=== PATIENT | female | born 1975 | race Caucasian/White ===

== ENCOUNTER 2018-01-25 11:08 | Emergency (ER) | payer OTHER ==
[2018-01-25 12:26] VITALS: BP 131/93
--- NOTE | 2018-01-25 12:42 | ED ---
Lower Extremity - HPI Summary HPI Summary: 42F presents with left leg pain for the past two days. has history of chronic back and sciatica pain and states that is feels different. is sharp pain from left hip to left posterior foot. pain does down the back aspect of leg. has calf pain. history of blood clots. no chest pain or SOB. no injury. no loss of bowel or bladder. no fever. no saddle anaesthesia. currently on flexeril did not help. worst when sits still. able to ambulate. no weakness. - History of Current Complaint Chief Complaint: UCLowerExtremity Stated Complaint: L LEG PAIN Time Seen by Provider: 01/25/18 12:27 Hx Last Menstrual Period: 01/19/18 Pain Intensity: 8 - Allergies/Home Medications Allergies/Adverse Reactions: Allergies Allergy/AdvReac Type Severity Reaction Status Date / Time acetaminophen [From Ultracet] Allergy Hives/Diff. Verified 01/25/18 12:22 Breathing/I tching aspirin Allergy Hives/Diff. Verified 01/25/18 12:22 Breathing/I tching azithromycin Allergy Hives/Diff. Verified 01/25/18 12:22 Breathing/I tching bupropion [From Wellbutrin] Allergy Anaphylatic Verified 01/25/18 12:22 Shock clindamycin Allergy Hives/Diff. Verified 01/25/18 12:22 Breathing/I tching codeine Allergy Hives/Diff. Verified 01/25/18 12:22 Breathing/I tching gabapentin Allergy Hives/Diff. Verified 01/25/18 12:22 Breathing/I tching hydrocodone [From Vicodin] Allergy Hives/Diff. Verified 01/25/18 12:22 Breathing/I tching ketorolac [From Toradol] Allergy Hives/Diff. Verified 01/25/18 12:22 Breathing/I tching NSAIDS (Non-Steroidal Allergy Hives/Diff. Verified 01/25/18 12:22 Anti-Inflamma Breathing/I tching tramadol Allergy Hives/Diff. Verified 01/25/18 12:22 Breathing/I tching Home Medications: Home Medications Cyclobenzaprine TAB* [Flexeril 10 MG TAB*] 10 mg PO Q12HR PRN 01/25/18 [History Confirmed 01/25/18] Escitalopram Oxalate [Lexapro 20 mg] 20 mg PO DAILY 01/25/18 [History Confirmed 01/25/18] Oxycodone HCl 5 mg PO DAILY 01/25/18 [History Confirmed 01/25/18] Zolpidem Tartrate [Ambien] 5 mg PO DAILY PRN 01/25/18 [History Confirmed ] busPIRone TAB* [Buspar TAB*] 5 mg PO BID 01/25/18 [History Confirmed 01/25/18] PMH/Surg Hx/FS Hx/Imm Hx Endocrine/Hematology History: Denies: Hx Anticoagulant Therapy, Hx Diabetes Psychiatric History: Reports: Hx Anxiety, Hx Depression - Surgical History Surgery Procedure, Year, and Place: OVARIAN CYSCTECTOMY AND FALLOPIAN TUBE REMOVAL. [facility] Infectious Disease History: No Infectious Disease History: Denies: Traveled Outside the [place] in Last 30 Days - Family History Known Family History: Negative: Blood Disorder - Social History Alcohol Use: Occasionally Substance Use Type: Reports: None Smoking Status (MU): Heavy Every Day Tobacco Smoker Amount Used/How Often: 1/2 PPD Review of Systems Negative: Fever Negative: Chest Pain Negative: Shortness Of Breath Positive: Myalgia - left leg pain All Other Systems Reviewed And Are Negative: Yes Physical Exam Triage Information Reviewed: Yes Vital Signs On Initial Exam: Initial Vitals Temp Pulse Resp BP Pulse Ox 99.8 F 91 19 131/93 99 01/25/18 12:14 01/25/18 12:14 01/25/18 12:14 01/25/18 12:14 01/25/18 12:14 Vital Signs Reviewed: Yes Appearance: Positive: Well-Appearing Skin: Positive: Warm, Dry Head/Face: Positive: Normal Head/Face Inspection Eyes: Positive: Normal, Conjunctiva Clear ENT: Positive: Pharynx normal Respiratory/Lung Sounds: Positive: Clear to Auscultation, Breath Sounds Present Cardiovascular: Positive: Normal, RRR Musculoskeletal: Positive: Limited @ - left leg due to pain, Other - good pulses , capillary refill<2 secs, sensation grossly intact, no midline tenderness back , no SI joint tenderness. Negative: Max Sign Left, Edema Left Neurological: Positive: Reflexes Intact - patella, Normal Gait Diagnostics - Vital Signs Vital Signs Temp Pulse Resp BP Pulse Ox 01/25/18 12:14 99.8 F 91 19 131/93 99 - Laboratory Lab Statement: Any lab studies that have been ordered have been reviewed, and results considered in the medical decision making process. Lower Extremity Course/Dx - Course Course Of Treatment: 42F presents with left leg pain for the past two days. has history of chronic back and sciatica pain and states that is feels different. is sharp pain from left hip to left posterior foot. pain does down the back aspect of leg. has calf pain. history of blood clots. no chest pain or SOB. no injury. no loss of bowel or bladder. no fever. no saddle anaesthesia. currently on flexeril did not help. worst when sits still. able to ambulate. no weakness. on exam no edema noted. full ROM hip with pain. nontender back and SI joint. neurovascular intact. no numbness or tingling. discussed with patient that can not rule out blood clot as have no u/s so advised to go to ED but patient declined. will follow up with primary tomorrow for u/s. discussed pain options and due to extensive allergy will give a day of pain medication till can see primary tomorrow. istop verified. will also start on steriod as likely is sciatica pain. patient understand and agrees with plan. - Diagnoses Differential Diagnosis/HQI/PQRI: Positive: DVT, Sciatica, Sprain, Strain Provider Diagnoses: Left leg pain Discharge - Sign-Out/Discharge Documenting (check all that apply): Discharge/Admit/Transfer - Discharge Plan Condition: Good Disposition: HOME Prescriptions: methylPREDNISolone [Medrol Dosepak 4 MG*] 4 mg PO .SEE MONIKA INSTRUCTION #1 packet oxyCODONE TAB* [Roxycodone TAB 5 mg*] 5 mg PO Q6H PRN #4 tab MDD 4 PRN Reason: Pain Patient Education Materials: Leg Pain (ED) Referrals: Tracee Batista PA [Primary Care Provider] - Additional Instructions: Follow up with primary tomorrow for potential u/s If develop any chest pain, SOB, palpations go immediately to the ED take steroid package Use oxy every 6 hours as needed for intense pain - Billing Disposition and Condition Condition: GOOD Disposition: Home
== END 2018-01-25 12:48 | disposition home or self-care (01) ==
LOC: UCCORT 11:08
DX: M79.605 Pain in left leg (principal); Z88.6 Allergy status to analgesic agent; Z88.1 Allergy status to other antibiotic agents; Z88.5 Allergy status to narcotic agent; Z88.8 Allergy status to other drugs, medicaments and biological substances; F17.210 Nicotine dependence, cigarettes, uncomplicated
CPT/HCPCS: 99202; G0463

== ENCOUNTER 2021-10-30 21:07 | Inpatient (IN) ==
[2021-10-30] MEDS ORDERED: Lactated Ringers 1000 ml BAG IV.FLUID IV ONE (23:29)
[2021-10-31 00:38] LABS: Hematocrit 40 % (35-47); Hemoglobin 13.2 g/dL (12.0-16.0); Mean Corpuscular HGB Conc 33 g/dL (31-36); Mean Corpuscular Hemoglobin 29 pg (27-31); Mean Corpuscular Volume 90 fL (80-97); Mean Platelet Volume 7.2 fL (7.4-10.4); Platelet Count 535 10^3/uL (150-450); Red Cell Distribution Width 16 % (10-15); White Blood Count 21.6 10^3/uL (3.5-10.8)
[2021-10-31 00:50] LABS: INR 1.27 (0.86-1.15)
[2021-10-31 01:08] LABS: ABS Basophils 0.1 10^3/ul (0-0.2); ABS Eosinophils 0.5 10^3/ul (0-0.6); ABS Lymphocytes 2.8 10^3/ul (1.0-4.8); ABS Monocytes 1.8 10^3/ul (0-0.8); ABS Neutrophils 16.3 10^3/ul (1.5-7.7); Eosinophil % 2.2 %; Lymphocyte % 13.1 %; Nucleated Red Blood Cells % 0.1
[2021-10-31] MEDS ORDERED: Cefepime 2 GM in Dextrose 2 GM/50 ML BAG IV ONE (01:21)
[2021-10-31] MEDS ORDERED: Morphine 4 MG/ML VIAL (1 ml) IV ONE (01:31)
[2021-10-31] MEDS ORDERED: Ondansetron 4 mg VIAL 2 MG/ML 2 ml VIAL IV ONE (01:32)
[2021-10-31 01:43] LABS: Albumin 3.7 g/dL (3.2-5.2); Albumin/Globulin Ratio 1.1 (1-3); C Reactive Protein 95.38 mg/L (<8.01); Calcium 9.3 mg/dL (8.6-10.3); Globulin 3.3 g/dL (2-4); Total Bilirubin 0.4 mg/dL (0.2-1.0); eGFR CKD-EPI 113.4 (>60)
[2021-10-31] MEDS ORDERED: Iohexol 300 (CONTRAST) 10 ML SDV IV ONE (01:50)
[2021-10-31] MEDS ORDERED: Vancomycin 1,250 MG in NS 0.9% 250 ml 250 ML IVPB ONE (02:00)
[2021-10-31] MEDS ORDERED: Vancomycin 1,000 MG VIAL IVPB SCH (02:00)
[2021-10-31 02:57] LABS: Urine Appearance Cloudy; Urine Bacteria Absent (Absent); Urine Bilirubin Negative (Negative); Urine Blood 2+ (Negative); Urine Color Yellow; Urine Glucose Negative (Negative); Urine Ketones Negative (Negative); Urine Nitrite Negative (Negative); Urine Protein Negative (Negative); Urine Red Blood Cell 1+(3-5/hpf) (Absent); Urine Squamous Epithelial Cell Present (Absent); Urine Urobilinogen Negative (Negative); Urine White Blood Cell Trace(0-5/hpf) (Absent)
[2021-10-31] MEDS ORDERED: Vancomycin per Pharmacy 1 EA NOTE FOLLOW UP SCH (05:00)
[2021-10-31] MEDS ORDERED: Senna TAB 8.6 mg TAB PO PRN (05:15)
[2021-10-31] MEDS ORDERED: Magnesium Hydroxide LIQ 30 ML UDC PO PRN (05:15)
[2021-10-31] MEDS ORDERED: Lactated Ringers 1000 ml BAG 1,000 ML IV SCH ×2 (09:00→11:00)
[2021-10-31] MEDS ORDERED: Buffered Lidocaine 1% SYRIN 1 ml INTRADERM ONE (10:32)
[2021-10-31] MEDS ORDERED: Vancomycin 750 MG in NS 0.9% 250 ML IVPB ONE (11:00)
[2021-10-31 11:32] LABS: HCG Pregnancy 1.48 mIU/mL
[2021-10-31] MEDS ORDERED: Lactated Ringers 1000 ml BAG 1,000 ML IV ONE (14:01)
[2021-10-31] MEDS ORDERED: fentaNYL 250 mcg/5 ml 50 MCG/ML 5 ml VIAL (250 MCG) ONE (15:34)
[2021-10-31] MEDS ORDERED: Lidocaine 2% PF 5 ML VIAL ONE (15:34)
[2021-10-31] MEDS ORDERED: Midazolam 2 mg/2 ml VIAL 1 mg/ml 2 ml VIAL (2 mg) ONE (15:34)
[2021-10-31] MEDS ORDERED: Propofol 10 MG/ML 20 ML BTL ONE (15:34)
[2021-10-31] MEDS ORDERED: Ondansetron 4 mg VIAL 2 MG/ML 2 ml VIAL IV PRN ×2 (16:24→17:42)
[2021-10-31] MEDS ORDERED: Naloxone 0.4 mg VIAL 0.4 mg/ml 1 ml VIAL IV PRN ×2 (16:24→17:42)
[2021-10-31] MEDS ORDERED: fentaNYL 100 mcg/2 ml 50 MCG/ML VIAL IV PRN ×2 (16:24→17:42)
[2021-10-31] MEDS ORDERED: Dexamethasone IV 4 MG/ML VIAL 1 ml VIAL ONE (16:57)
[2021-10-31] MEDS ORDERED: Ondansetron 4 mg VIAL 2 MG/ML 2 ml VIAL ONE (16:57)
[2021-10-31] MEDS: Lactated Ringers 1000 ml BAG 1,000 ML IV SCH (19:40)
[2021-10-31] MEDS: Vancomycin 750 MG in NS 0.9% 250 ML IVPB SCH (19:48)
[2021-10-31] MEDS: Nicotine PATCH 21 MG/24 HR PATCH TRANSDERM SCH (19:50)
[2021-11-01] MEDS: Vancomycin 750 MG in NS 0.9% 250 ML IVPB SCH ×3 (04:15→19:56)
[2021-11-01 07:10] LABS: ABS Basophils 0.1 10^3/ul (0-0.2); ABS Eosinophils 0.1 10^3/ul (0-0.6); ABS Monocytes 0.9 10^3/ul (0-0.8); ABS Neutrophils 13.9 10^3/ul (1.5-7.7); Eosinophil % 0.4 %; Hematocrit 33 % (35-47); Hemoglobin 10.7 g/dL (12.0-16.0); Lymphocyte % 11.6 %; Mean Corpuscular HGB Conc 33 g/dL (31-36); Mean Corpuscular Hemoglobin 29 pg (27-31); Mean Corpuscular Volume 91 fL (80-97); Mean Platelet Volume 7.4 fL (7.4-10.4); Platelet Count 437 10^3/uL (150-450); Red Blood Count 3.65 10^6 /uL (3.70-4.87); Red Cell Distribution Width 16 % (10-15); White Blood Count 16.9 10^3/uL (3.5-10.8)
[2021-11-01 07:44] LABS: Albumin 2.7 g/dL (3.2-5.2); Albumin/Globulin Ratio 1.1 (1-3); C Reactive Protein 121.49 mg/L (<8.01); Calcium 8.1 mg/dL (8.6-10.3); Globulin 2.4 g/dL (2-4); Potassium 4.4 mmol/L (3.5-5.0); Total Bilirubin 0.2 mg/dL (0.2-1.0); Total Protein 5.1 g/dL (6.4-8.9); eGFR CKD-EPI 120.7 (>60)
[2021-11-01] MEDS: Enoxaparin 40 MG/0.4 ML SYR SUBCUT SCH (10:28)
[2021-11-01] MEDS: Nicotine PATCH 21 MG/24 HR PATCH TRANSDERM SCH (10:29)
[2021-11-01] MEDS: Lactated Ringers 1000 ml BAG 1,000 ML IV SCH (10:33)
[2021-11-01] MEDS ORDERED: Vancomycin Trough Check NOTE FOLLOW UP ONE (11:30)
[2021-11-01] MEDS: Morphine 2 MG/ML SYRINGE IV PRN ×2 (14:25→17:48)
[2021-11-01 14:55] LABS: HIV 4th Generation Nonreactive (Nonreactive)
[2021-11-02] MEDS: Lactated Ringers 1000 ml BAG 1,000 ML IV SCH (00:32)
[2021-11-02] MEDS: Vancomycin 750 MG in NS 0.9% 250 ML IVPB SCH ×3 (03:33→20:49)
[2021-11-02] MEDS: Enoxaparin 40 MG/0.4 ML SYR SUBCUT SCH (08:48)
[2021-11-02] MEDS: Nicotine PATCH 21 MG/24 HR PATCH TRANSDERM SCH (08:49)
[2021-11-02] MEDS ORDERED: HYDROcodone/ACETAMIN 5/325 mg TAB PO PRN (17:00)
[2021-11-03] MEDS: Lactated Ringers 1000 ml BAG 1,000 ML IV SCH (02:01)
[2021-11-03] MEDS: Vancomycin 750 MG in NS 0.9% 250 ML IVPB SCH ×3 (04:47→19:52)
[2021-11-03 09:25] LABS: ABS Basophils 0.1 10^3/ul (0-0.2); ABS Eosinophils 0.6 10^3/ul (0-0.6); ABS Monocytes 0.8 10^3/ul (0-0.8); ABS Neutrophils 4.7 10^3/ul (1.5-7.7); Eosinophil % 6.7 %; Hematocrit 36 % (35-47); Hemoglobin 12.1 g/dL (12.0-16.0); Lymphocyte % 32.7 %; Mean Corpuscular HGB Conc 34 g/dL (31-36); Mean Corpuscular Hemoglobin 30 pg (27-31); Mean Corpuscular Volume 90 fL (80-97); Mean Platelet Volume 7.2 fL (7.4-10.4); Nucleated Red Blood Cells % 0.2; Platelet Count 515 10^3/uL (150-450); Red Blood Count 3.97 10^6 /uL (3.70-4.87); Red Cell Distribution Width 15 % (10-15); White Blood Count 9.2 10^3/uL (3.5-10.8)
[2021-11-03] MEDS: Nicotine PATCH 21 MG/24 HR PATCH TRANSDERM SCH (09:34)
[2021-11-03] MEDS: Enoxaparin 40 MG/0.4 ML SYR SUBCUT SCH (09:34)
[2021-11-03 09:48] LABS: C Reactive Protein 17.46 mg/L (<8.01); Calcium 8.8 mg/dL (8.6-10.3); Potassium 4.7 mmol/L (3.5-5.0); eGFR CKD-EPI 122.1 (>60)
[2021-11-03] MEDS: oxyCODONE/Acetamin 5/325 mg TAB PO PRN (12:12)
[2021-11-04] MEDS: Vancomycin 750 MG in NS 0.9% 250 ML IVPB SCH ×3 (05:24→19:54)
[2021-11-04] MEDS: oxyCODONE/Acetamin 5/325 mg TAB PO PRN ×4 (05:33→19:53)
[2021-11-04] MEDS: Nicotine PATCH 21 MG/24 HR PATCH TRANSDERM SCH (09:51)
[2021-11-04] MEDS: Enoxaparin 40 MG/0.4 ML SYR SUBCUT SCH (09:51)
[2021-11-05] MEDS: Vancomycin 750 MG in NS 0.9% 250 ML IVPB SCH ×2 (03:19→14:03)
[2021-11-05] MEDS: Nicotine PATCH 21 MG/24 HR PATCH TRANSDERM SCH (09:39)
[2021-11-05] MEDS: Enoxaparin 40 MG/0.4 ML SYR SUBCUT SCH (09:40)
[2021-11-05] MEDS: oxyCODONE/Acetamin 5/325 mg TAB PO PRN ×2 (09:40→14:03)
[2021-11-05] MEDS ORDERED: Vancomycin Trough Check NOTE FOLLOW UP ONE (11:30)
[2021-11-05 11:33] VITALS: BP 116/74
== END 2021-11-05 15:50 | disposition home or self-care (01) | DRG 364 ==
LOC: ED 21:07 → EDHOLD 10-31 04:40 → SUATTDRO 10-31 04:40 → EDHOLD 10-31 12:53 → MED 10-31 14:06
PROVIDERS: ADMIT Internal Medicine; ATTEND Internal Medicine